=== PATIENT | female | born 1960 | race Caucasian/White ===

== ENCOUNTER 2016-08-21 08:46 | Outpatient (CLI) | payer MEDICAID | END 2016-08-21 08:47 | disposition home or self-care (01) | DX: E11.9 Type 2 diabetes mellitus without complications (principal); I10 Essential (primary) hypertension ==

== ENCOUNTER 2016-11-25 06:57 | Outpatient (CLI) | payer MEDICAID ==
[2016-11-25 19:12] LABS: CALCIUM 9.8 mg/dL (8.5-10.3); CREATININE 0.9 mg/dL (0.4-1.0); HEMOGLOBIN A1C 1.22 g/dL; POTASSIUM 4.3 mmol/L (3.5-5.0)
== END 2016-11-25 06:58 | disposition home or self-care (01) ==
LOC: LAB.N 06:57
PROVIDERS: ATTEND Family Medicine
DX: E11.9 Type 2 diabetes mellitus without complications (principal); I10 Essential (primary) hypertension
CPT/HCPCS: 36415; 80048; 83036

== ENCOUNTER 2016-12-08 09:00 | Outpatient (CLI) | payer MEDICAID | END 2016-12-08 09:15 | disposition home or self-care (01) | LOC: RT.N 09:00 | PROVIDERS: ATTEND Family Medicine | DX: R01.1 Cardiac murmur, unspecified (principal); R00.2 Palpitations | CPT/HCPCS: 93005 ==

== ENCOUNTER 2016-12-17 11:19 | Outpatient (CLI) | payer MEDICAID ==
--- NOTE | 2016-12-18 11:59 | XRAY Report ---
LEFT SHOULDER, THREE VIEWS: 12/17/2016 CLINICAL HISTORY: Left shoulder pain. FINDINGS: Soft tissue is normal. Moderate-sized left subacromial spurring is seen. Spurring is not ed at the AC joint, both along the acromial and clavicular surfaces. Spurring is also seen along the lateral superior aspect of the acromion. Mild spurring is noted along the lateral aspect of the gre ater tuberosity of the left humeral head. Minor subchondral cyst formation is noted. Left glenohume ral joint appears normal. IMPRESSION: 1. MILD OSTEOARTHRITIS OF THE LEFT AC JOINT IS SEEN WITHOUT SIGNIFICANT NARROWING. 2. MODERATE-SIZED LEFT SUBACROMIAL SPUR IS NOTED. 3. MILD SPURRING IS SEEN ALONG THE LATERAL ASPECT OF THE LEFT HUMERAL HEAD. JOB #: [id number] EXT JOB #:[id number]
== END 2016-12-17 11:20 | disposition home or self-care (01) ==
LOC: DI.N 11:19
PROVIDERS: ATTEND Family Medicine
DX: M19.012 Primary osteoarthritis, left shoulder (principal); M25.712 Osteophyte, left shoulder

== ENCOUNTER 2017-03-09 20:18 | Outpatient (CLI) | payer MEDICAID ==
[2017-03-09 13:21] LABS: CALCIUM 9.4 mg/dL (8.5-10.3); CREATININE 0.9 mg/dL (0.4-1.0); POTASSIUM 3.7 mmol/L (3.5-5.0)
[2017-03-09 13:34] LABS: HEMOGLOBIN A1C 0.8 g/dL
== END 2017-03-09 20:19 | disposition home or self-care (01) ==
LOC: LAB.N 20:18
PROVIDERS: ATTEND Family Medicine
DX: E11.9 Type 2 diabetes mellitus without complications (principal)
CPT/HCPCS: 36415; 80048; 83036

== ENCOUNTER 2017-10-20 08:00 | Outpatient (CLI) | payer MEDICAID ==
[2017-10-20 12:54] LABS: BASOPHILS % (AUTO) 0.6 %; EOSINOPHILS # (AUTO) 0.2 10^3/uL (0.0-0.7); EOSINOPHILS % (AUTO) 2.3 %; HGB - HEMOGLOBIN 13.6 g/dL (12.0-16.0); LYMPHOCYTES # (AUTO) 2.8 10^3/uL (1.5-3.5); LYMPHOCYTES % (AUTO) 35.7 %; MEAN CORPUSCULAR HEMOGLOBIN 32.9 pg (27.0-31.0); MEAN CORPUSCULAR HGB CONC 34.7 g/dL (32.0-36.0); MEAN CORPUSCULAR VOLUME 94.8 fL (81.0-99.0); MEAN PLATELET VOLUME 8.1 fL (7.9-10.8); MONOCYTES # (AUTO) 0.7 10^3/uL (0.0-1.0); MONOCYTES % (AUTO) 9.3 %; NEUTROPHILS # (AUTO) 4.1 10^3/uL (1.5-6.6); NEUTROPHILS % (AUTO) 52.1 %; PLT - PLATELET COUNT 333 10^3/uL (130-450); RED BLOOD COUNT 4.14 10^6/uL (4.20-5.40); RED CELL DISTRIBUTION WIDTH 13.1 % (12.0-15.0); WHITE BLOOD COUNT 7.8 x10^3/uL (4.8-10.8)
[2017-10-20 13:11] LABS: HB2 TOTAL 15.3 g/dL; HEMOGLOBIN A1C 0.94 g/dL; HEMOGLOBIN A1C % 7.8 % (4.6-6.2)
[2017-10-20 13:20] LABS: THYROID STIMULATING HORMONE 6.02 uIU/mL (0.34-5.60)
[2017-10-20 13:24] LABS: ALBUMIN 4.3 g/dL (3.2-5.5); ALBUMIN/GLOBULIN RATIO 1.3 (1.0-2.2); ALKALINE PHOSPHATASE 41 IU/L (42-121); ALT ALANINE AMINOTRANSFERASE 30 IU/L (10-60); AST ASPARTATE AMINOTRANSFERASE 31 IU/L (10-42); BILIRUBIN,TOTAL 0.6 mg/dL (0.2-1.0); BUN - BLOOD UREA NITROGEN 18 mg/dL (6-20); CALCIUM 9.3 mg/dL (8.5-10.3); CARBON DIOXIDE - CO2 25 mmol/L (21-32); CHLORIDE 101 mmol/L (101-111); CHOLESTEROL 182 mg/dL; CREATININE 0.9 mg/dL (0.4-1.0); GFR - MDRD 64 (>89); GLUCOSE 201 mg/dL (70-100); HDL CHOLESTEROL 45 mg/dL; LDL CHOLESTEROL,CALCULATED 97 mg/dL; LDL/HDL RATIO 2.2 (<4.4); SODIUM 135 mmol/L (135-145); TOTAL PROTEIN 7.7 g/dL (6.7-8.2); VLDL CHOLESTEROL 40 mg/dL
[2017-10-20 14:22] LABS: FREE T4 (FREE THYROXINE) 0.73 ng/dL (0.58-1.64)
== END 2017-10-20 08:01 | disposition home or self-care (01) ==
LOC: LAB.N 08:00
PROVIDERS: ATTEND Family Medicine
DX: E66.9 Obesity, unspecified (principal); E11.9 Type 2 diabetes mellitus without complications; I10 Essential (primary) hypertension
CPT/HCPCS: 36415; 80050; 80061; 83036; 83721; 84439

== ENCOUNTER 2018-01-30 15:07 | Emergency (ER) | payer MEDICAID ==
[2018-01-30 15:17] VITALS: BP 140/88
[2018-01-30] MEDS ORDERED: KETOROLAC 60 MG/2 ML VIAL IM STA (15:23)
--- NOTE | 2018-01-30 15:26 | ED Physician Documentation ---
PD HPI BACK PAIN - Stated complaint Stated Complaint: RT LOW BK PX - Chief complaint Chief Complaint: Back Pain - History obtained from History obtained from: Patient - History of Present Illness Timing - onset: Other (This is a 57-year-old woman with diabetes who has a long history of low back pain with exacerbations on the right side causing sciatica. She developed her typical low back pain 4 days ago without specific injury. She has been trying to stretch it out without relief. She is taking Aleve for also without relief. She denies weakness, numbness, or tingling of the extremities or saddle anesthesia. There is no fever, there is no bowel or bladder incontinence, but it does exacerbate her back pain to poop.) Review of Systems Constitutional: denies: Fever, Chills Cardiac: denies: Chest pain / pressure, Palpitations Respiratory: denies: Dyspnea, Cough PD PAST MEDICAL HISTORY - Past Medical History Past Medical History: Yes Cardiovascular: Hypertension, High cholesterol Respiratory: None Endocrine/Autoimmune: Type 2 diabetes GI: GERD HEENT: None Musculoskeletal: Chronic back pain Derm: None - Past Surgical History Past Surgical History: Yes Ortho: Knee replacement, Carpal Tunnel surgery - Present Medications Home Medications: Ambulatory Orders Medication Instructions Recorded Confirmed Amlodipine Besylate 10 mg PO QDAC 12/01/12 03/19/16 Insulin Aspart (Vial) [NovoLOG] 20 unit SUBQ TIDACHS 12/01/12 03/19/16 Lisinopril 20 mg PO .FREQ 12/01/12 03/19/16 Metformin HCl 1,000 mg PO .FREQ 12/01/12 03/19/16 hydroCHLOROthiazide [Hydrodiuril] 25 mg PO ONCE 12/01/12 03/19/16 Cyclobenzaprine [Flexeril] 10 mg PO TID PRN #20 tablet 01/30/18 Oxycodone HCl/Acetaminophen 1 - 2 tab PO Q4H PRN #15 tablet 01/30/18 [Percocet 5-325 mg Tablet] raNITIdine [Zantac] BID 01/30/18 - Allergies Allergies/Adverse Reactions: Allergies Allergy/AdvReac Type Severity Reaction Status Date / Time fenoprofen calcium * Allergy Unknown unknown Verified 01/30/18 15:17 [From Nalfon] hydrocodone bitartrate * Allergy unknown Verified 01/30/18 15:17 [From Vicodin] NSAIDS (Non-Steroidal Allergy Unknown Verified 01/30/18 15:17 Anti-Inflamma - Social History Does the pt smoke?: No Smoking Status: Never smoker Does the pt drink ETOH?: No Does the pt have substance abuse?: No - Immunizations Immunizations are current?: Yes - POLST Patient has POLST: No PD ED PE NORMAL - Vitals Vital signs reviewed: Yes - General General: Alert and oriented X 3, No acute distress - Cardiac Cardiac: RRR, No murmur - Respiratory Respiratory: No respiratory distress, Clear bilaterally - Abdomen Abdomen: Non tender - Back Back: No spinal TTP, Other (Tender in the right sciatic notch) - Extremities Extremities: Other (Slightly diminished sensation in the right L4 distribution, reflexes are diminished but symmetric throughout. Normal gait.) - Neuro Neuro: Alert and oriented X 3, Normal speech Results - Vitals Vitals: Vital Signs - 24 hr 01/30/18 15:15 Temperature 36.0 C L Heart Rate 112 H Respiratory 25 H Rate Blood Pressure 140/88 H O2 Saturation 98 Oxygen O2 Source Room air PD MEDICAL DECISION MAKING - ED course ED course: This patient has seemingly uncomplicated musculoskeletal back pain. The patient has no "red flags." Specifically denies IV drug use, fevers, incontinence, saddle anesthesia. Spinal epidural abscess was considered, given that the patient has no fever, has no spinal tenderness, does not use IV drugs, and has no bilateral neurologic symptoms, the diagnosis of spinal epidural abscess is considered exceedingly unlikely. - Sepsis Event Vital Signs: Vital Signs - 24 hr 01/30/18 15:15 Temperature 36.0 C L Heart Rate 112 H Respiratory 25 H Rate Blood Pressure 140/88 H O2 Saturation 98 Oxygen O2 Source Room air Departure - Departure Disposition: 01 Home, Self Care Clinical Impression: Back pain Qualifiers: Back pain location: low back pain Chronicity: chronic Back pain laterality: right Sciatica presence: with sciatica Sciatica laterality: sciatica of right side Qualified Code(s): M54.41 - Lumbago with sciatica, right side; G89.29 - Other chronic pain; G89.29 - Other chronic pain Condition: Good Record reviewed to determine appropriate education?: Yes Instructions: ED Low Back Pain Injury Prescriptions: Cyclobenzaprine [Flexeril] 10 mg PO TID PRN #20 tablet PRN Reason: Pain Oxycodone HCl/Acetaminophen [Percocet 5-325 mg Tablet] 1 - 2 tab PO Q4H PRN #15 tablet PRN Reason: Pain Comments: Call your doctor to arrange a follow-up appointment, make the next available appointment. In the interim, return anytime if worse or if new symptoms develop.
== END 2018-01-30 15:48 | disposition home or self-care (01) ==
LOC: ED 15:07
DX: G89.29 Other chronic pain (principal); M54.41 Lumbago with sciatica, right side; I10 Essential (primary) hypertension; E11.9 Type 2 diabetes mellitus without complications; Z79.4 Long term (current) use of insulin
CPT/HCPCS: 96372; 99283

== ENCOUNTER 2018-02-10 09:36 | Outpatient (CLI) | payer MEDICAID ==
--- NOTE | 2018-02-10 14:07 | XRAY Report ---
Procedure Date: 02/10/2018 Accession Number: [id number] / [id number] Procedure: XRN - Lumbar Spine 2 View CPT Code: FULL RESULT: EXAM: LUMBOSACRAL SPINE RADIOGRAPHY EXAM DATE: 02/10/2018 09:59 AM. CLINICAL HISTORY: BACK PAIN, LUMBAR. COMPARISONS: None. TECHNIQUE: 3 views. FINDINGS: Alignment: There is mild left convex curvature of the thoracolumbar spine centered at the L1 level. This measures approximately 14 degrees from the superior endplate of T11 to the inferior endplate of L3. There is grade 1 anterolisthesis of L4 on L5 measuring approximately 4 mm. Bones: Five [id number] lumbar vertebral bodies are present. No fractures or bone lesions. Disks: There is mild disk height loss and endplate osteophyte formation throughout the lumbar spine. Facets: There are probable mild degenerative facet changes of the lower lumbar spine. Sacroiliac Joints: Unremarkable. Soft Tissues: Normal. The visualized bowel gas pattern is normal. IMPRESSION: 1. No acute osseous abnormality. 2. Mild multilevel degenerative disk and degenerative facet changes of the lumbar spine. 3. Grade 1 anterolisthesis of L4 on L5 and mild left convex curvature at the thoracolumbar junction, likely related to degenerative changes. RADIA
== END 2018-02-10 09:37 | disposition home or self-care (01) ==
LOC: DI.N 09:36
PROVIDERS: ATTEND Family Medicine
DX: M51.36 Other intervertebral disc degeneration, lumbar region (principal); M47.896 Other spondylosis, lumbar region; E11.65 Type 2 diabetes mellitus with hyperglycemia
CPT/HCPCS: 36415; 72100; 80048; 83036

== ENCOUNTER 2018-02-10 10:39 | Outpatient (CLI) | payer MEDICAID ==
[2018-02-10 19:01] LABS: CALCIUM 9.8 mg/dL (8.5-10.3); CREATININE 1.1 mg/dL (0.4-1.0)
[2018-02-10 19:10] LABS: HB2 TOTAL 14.2 g/dL; HEMOGLOBIN A1C 0.89 g/dL; HEMOGLOBIN A1C % 7.9 % (4.6-6.2)
== END 2018-02-10 10:40 | disposition home or self-care (01) ==
LOC: LAB.N 10:39
PROVIDERS: ATTEND Family Medicine
DX: E11.65 Type 2 diabetes mellitus with hyperglycemia (principal)
CPT/HCPCS: 36415; 80048; 83036

== ENCOUNTER 2018-03-25 11:51 | Outpatient (CLI) | payer MEDICAID ==
--- NOTE | 2018-03-25 17:34 | XRAY Report ---
Reason: KNEE PAIN Procedure Date: 03/25/2018 Accession Number: [id number] / [id number] Procedure: XRN - Knee 3 View LT CPT Code: FULL RESULT: EXAM: LEFT KNEE RADIOGRAPHY EXAM DATE: 03/25/2018 12:06 PM. CLINICAL HISTORY: KNEE PAIN. COMPARISON: None. TECHNIQUE: 3 views. FINDINGS: Bones: Normal. No fractures or bone lesions. Joints: Medial hemiarthroplasty in anatomic alignment. No abnormal lucency associated with the arthroplasty. Mild marginal lipping involving the other 2 compartments. Small joint effusion. Smooth ossicle lateral to the lateral tibial plateau. Soft Tissues: Unremarkable. IMPRESSION: 1. Postoperative changes in the medial compartment. 2. Moderate degenerative changes in other compartments. RADIA
== END 2018-03-25 11:52 | disposition home or self-care (01) ==
LOC: DI.N 11:51
PROVIDERS: ATTEND Family Medicine
DX: M17.12 Unilateral primary osteoarthritis, left knee (principal)

== ENCOUNTER 2018-05-06 10:17 | Outpatient (CLI) | payer MEDICAID | END 2018-05-06 10:18 | disposition home or self-care (01) | LOC: RT.N 10:17 | PROVIDERS: ATTEND Family Medicine | DX: R61 Generalized hyperhidrosis (principal) | CPT/HCPCS: 93005 ==

== ENCOUNTER 2018-07-04 16:19 | Emergency (ER) | payer MEDICAID ==
--- NOTE | 2018-07-04 17:10 | ED Physician Documentation ---
PD HPI BACK INJURY - Stated complaint Stated Complaint: FLOOR VS TAILBONE - History obtained from History obtained from: Patient - History of Present Illness Location: Lower (She slipped about 10 days ago and hit her tailbone. It hurt severely for 2 days and then started getting better but the pain recurred today while sneezing.) Review of Systems Constitutional: denies: Fever, Chills GI: denies: Abdominal Pain, Nausea, Vomiting PD PAST MEDICAL HISTORY - Past Medical History Cardiovascular: Hypertension, High cholesterol Respiratory: None Endocrine/Autoimmune: Type 2 diabetes GI: GERD HEENT: None Musculoskeletal: Chronic back pain Derm: None - Past Surgical History Past Surgical History: Yes Ortho: Knee replacement, Carpal Tunnel surgery - Present Medications Home Medications: Ambulatory Orders Medication Instructions Recorded Confirmed Insulin Aspart (Vial) [NovoLOG] 20 unit SUBQ TIDACHS 12/01/12 03/19/16 RX: Amlodipine Besylate 10 mg PO QDAC 12/01/12 03/19/16 RX: Lisinopril 20 mg PO .FREQ 12/01/12 03/19/16 RX: Metformin HCl 1,000 mg PO .FREQ 12/01/12 03/19/16 hydroCHLOROthiazide [Hydrodiuril] 25 mg PO ONCE 12/01/12 03/19/16 Cyclobenzaprine [Flexeril] 10 mg PO TID PRN #20 tablet 01/30/18 Oxycodone HCl/Acetaminophen 1 - 2 tab PO Q4H PRN #15 tablet 01/30/18 [Percocet 5-325 mg Tablet] RX: raNITIdine [Zantac] BID 01/30/18 Oxycodone HCl/Acetaminophen 1 - 2 each PO Q6H PRN #14 tablet 07/04/18 [Percocet 5-325 mg Tablet] - Allergies Allergies/Adverse Reactions: Allergies Allergy/AdvReac Type Severity Reaction Status Date / Time fenoprofen calcium * Allergy Unknown unknown Verified 07/04/18 16:33 [From Nalfon] hydrocodone bitartrate * Allergy unknown Verified 07/04/18 16:33 [From Vicodin] NSAIDS (Non-Steroidal Allergy Unknown Verified 07/04/18 16:33 Anti-Inflamma - Social History Does the pt smoke?: No Smoking Status: Never smoker Does the pt drink ETOH?: No Does the pt have substance abuse?: No - Immunizations Immunizations are current?: Yes - POLST Patient has POLST: No PD ED PE NORMAL - Vitals Vital signs reviewed: Yes - General General: Alert and oriented X 3, No acute distress - Cardiac Cardiac: RRR, No murmur - Respiratory Respiratory: No respiratory distress, Clear bilaterally - Abdomen Abdomen: Non tender - Back Back: Other (Tender in the low L-spine and over the sacrum) - Extremities Extremities: Other (The patient has equal and normal Achilles and patellar reflexes bilaterally. Normal sensation in all areas of the legs. Patient denies saddle anesthesia. Normal strength in flexion-extension at the ankles, knees, and flexion of the hips.) - Neuro Neuro: Alert and oriented X 3, Normal speech Results - Vitals Vitals: Vital Signs - 24 hr 07/04/18 07/04/18 16:29 18:27 Temperature 36.5 C 36.7 C Heart Rate 124 H 115 H Respiratory 20 16 Rate Blood Pressure 159/109 H 153/83 H O2 Saturation 97 97 Oxygen O2 Source Room air - Rads (name of study) Lumbar and sacral x-rays Radiology: EMP read contemporaneously (NAD, DDD) Departure - Departure Disposition: Home, Self Care Clinical Impression: Sacral contusion, Back pain Record reviewed to determine appropriate education?: Yes Instructions: ED Low Back Pain Injury Prescriptions: Oxycodone HCl/Acetaminophen [Percocet 5-325 mg Tablet] 1 - 2 each PO Q6H PRN #14 tablet PRN Reason: pain Comments: Call your doctor to arrange a follow-up appointment, make the next available appointment. In the interim, return anytime if worse or if new symptoms develop. Your blood pressure was elevated today on check into the emergency department. This does not mean that you have hypertension, it is a common phenomenon to come to the emergency department and have elevated blood pressure. I recommend that you see your primary care physician within the week to have it rechecked when you are feeling better. Do not drink or drive while taking narcotic pain medication. Note that many narcotic pain relievers also contain Tylenol/acetaminophen. Please ensure that your total dose of acetaminophen from all sources does not exceed 3 g (3000 mg) per day. You may get constipated while on this medication. Take a stool softener such as Colace twice a day while you are on it. Also add an xuqn-[id number] laxative such as senna or MiraLAX on any day that you do not have a bowel movement. If you received a narcotic pain medication or sedative while in the emergency department, do not drive for the next 24 hours. Discharge Date/Time: 07/04/18 18:33
--- NOTE | 2018-07-04 18:10 | XRAY Report ---
Reason: back inj Procedure Date: 07/04/2018 Accession Number: [id number] / [id number] Procedure: XR - Sacrum/Coccyx CPT Code: FULL RESULT: EXAM: SACRUM AND COCCYX RADIOGRAPHY EXAM DATE: 07/04/2018 05:46 PM. HISTORY: Coccygeal pain. Unable to sit or stand upright. Injury on 06/24/2018. COMPARISONS: Lumbar spine series 02/10/2018. TECHNIQUE: 3 views. FINDINGS: Alignment: Stable sacrococcygeal alignment compared to the prior exam. No dislocation. Bones: No acute fracture or bone destructive process identified. Intact sacral ala. Joints: Symmetrical SI joints. Stable appearance of bilateral hip joints and symphysis pubis. Other: Degenerative changes of the visualized lower lumbar spine and stable grade 1 anterolisthesis L4 on L5. IMPRESSION: 1. No acute sacrococcygeal fracture or dislocation identified. RADIA
--- NOTE | 2018-07-04 18:18 | XRAY Report ---
Reason: back inj Procedure Date: 07/04/2018 Accession Number: [id number] / [id number] Procedure: XR - Lumbar Spine 2 View CPT Code: FULL RESULT: EXAM: LUMBOSACRAL SPINE RADIOGRAPHY EXAM DATE: 07/04/2018 05:46 PM. CLINICAL HISTORY: Back pain COMPARISONS: LUMBAR SPINE 2 VIEW 02/10/2018 9:54 AM. TECHNIQUE: 2 views. FINDINGS: Alignment: There is grade 1 anterolisthesis of L4 on L5. This is stable. Bones: No fractures or focal bony lesions. Disks/Facets: There is multilevel disk space narrowing. There is lower lumbar facet arthrosis. Sacroiliac Joints: Unremarkable. Soft Tissues: No unexpected findings. IMPRESSION: 1. No evidence of fracture or dislocation. 2. There is moderate multilevel degenerative disease. RADIA
[2018-07-04 18:28] VITALS: BP 153/83
== END 2018-07-04 18:33 | disposition home or self-care (01) ==
LOC: ED 16:19
DX: S30.0XXA Contusion of lower back and pelvis, initial encounter (principal); W01.0XXA Fall on same level from slipping, tripping and stumbling without subsequent striking against object, initial encounter; M54.5 Low back pain; I10 Essential (primary) hypertension; E78.00 Pure hypercholesterolemia, unspecified; E11.9 Type 2 diabetes mellitus without complications; Z79.4 Long term (current) use of insulin; Z96.659 Presence of unspecified artificial knee joint
CPT/HCPCS: 72100; 72220; 99283

== ENCOUNTER 2018-11-16 09:39 | Outpatient (CLI) | payer MEDICAID ==
[2018-11-16 14:05] LABS: CREATININE 0.9 mg/dL (0.4-1.0)
[2018-11-16 14:36] LABS: HB2 TOTAL 15.7 g/dL; HEMOGLOBIN A1C 1.89 g/dL; HEMOGLOBIN A1C % 13.2 % (4.6-6.2)
== END 2018-11-16 23:59 | disposition home or self-care (01) ==
LOC: LAB.N 09:39
PROVIDERS: ATTEND Physician Assistant Medical
DX: E11.9 Type 2 diabetes mellitus without complications (principal)
CPT/HCPCS: 36415; 80048; 83036

== ENCOUNTER 2019-01-06 08:00 | Outpatient (CLI) | payer MEDICAID | END 2019-01-06 08:01 | disposition home or self-care (01) | LOC: LAB.R 08:00 | PROVIDERS: ATTEND Family Medicine | DX: R39.9 Unspecified symptoms and signs involving the genitourinary system (principal) | CPT/HCPCS: 87077; 87086; 87181 ==

== ENCOUNTER 2019-03-16 10:13 | Outpatient (CLI) | payer MEDICAID ==
[2019-03-16 13:03] LABS: HEMOGLOBIN A1C 1.25 g/dL; HEMOGLOBIN A1C % 10.3 % (4.6-6.2)
== END 2019-03-16 10:20 | disposition home or self-care (01) ==
LOC: LAB.N 10:13
PROVIDERS: ATTEND Physician Assistant Medical
DX: E11.8 Type 2 diabetes mellitus with unspecified complications (principal); Z79.4 Long term (current) use of insulin
CPT/HCPCS: 36415; 83036

== ENCOUNTER 2019-08-28 14:50 | Outpatient (CLI) | payer MEDICAID ==
[2019-08-28 18:50] LABS: CALCIUM 10.5 mg/dL (8.5-10.3); CREATININE 0.9 mg/dL (0.4-1.0); MAGNESIUM 1.9 mg/dL (1.7-2.8)
== END 2019-08-28 23:59 | disposition home or self-care (01) ==
LOC: LAB.N 14:50
PROVIDERS: ATTEND Internal Medicine Cardiovascular Disease
DX: I10 Essential (primary) hypertension (principal)
CPT/HCPCS: 36415; 80048; 82088; 83735; 83835; 84443

== ENCOUNTER 2019-08-30 10:43 | Outpatient (CLI) | payer MEDICAID ==
[2019-08-30 12:21] LABS: HB2 TOTAL 14.3 g/dL; HEMOGLOBIN A1C 0.57 g/dL; HEMOGLOBIN A1C % 5.8 % (4.6-6.2)
[2019-08-30 12:32] LABS: THYROID STIMULATING HORMONE 4.32 uIU/mL (0.34-5.60)
[2019-08-30 12:34] LABS: FREE T4 (FREE THYROXINE) 0.98 ng/dL (0.58-1.64)
== END 2019-08-30 23:59 | disposition home or self-care (01) ==
LOC: LAB.N 10:43
PROVIDERS: ATTEND Physician Assistant Medical
DX: E83.52 Hypercalcemia (principal); E11.9 Type 2 diabetes mellitus without complications; R79.89 Other specified abnormal findings of blood chemistry
CPT/HCPCS: 36415; 83036; 84439; 84443; 86800

== ENCOUNTER 2019-09-08 10:44 | Outpatient (CLI) | payer MEDICAID | END 2019-09-08 23:59 | disposition home or self-care (01) | LOC: LAB.N 10:44 | PROVIDERS: ATTEND Physician Assistant Medical | DX: E83.52 Hypercalcemia (principal) | CPT/HCPCS: 36415; 82306; 83970 ==

== ENCOUNTER 2019-09-08 11:01 | Outpatient (CLI) | payer MEDICAID ==
--- NOTE | 2019-09-08 22:32 | XRAY Report ---
Reason: THORACIC PAIN Procedure Date: 09/08/2019 Accession Number: [id number] / [id number] Procedure: XRN - Thoracic Spine 2 View CPT Code: Final Report FULL RESULT: EXAM: THORACIC SPINE RADIOGRAPHY EXAM DATE: 09/08/2019 11:22 AM. CLINICAL HISTORY: THORACIC PAIN. COMPARISON: LUMBAR SPINE 2 VIEW 02/10/2018 9:54 AM. TECHNIQUE: 3 views. FINDINGS: Alignment: There is mild left convexity curvature of the lower thoracic and visualized upper lumbar spine just a mild scoliosis similar to the prior lumbar spine x-ray in 2018. No subluxation. Bones: No fractures or bone lesions. Disks: There is mild to moderate loss of disk height and anterior endplate spurring at multiple mid and lower thoracic levels from T6-T7 through T12-L1 compatible with spondylosis and degenerative disk disease. Soft Tissues: Normal. The visualized lungs and cardiomediastinal silhouette are unremarkable. IMPRESSION: 1. No acute osseous abnormality of thoracic spine. 2. Mild to moderate multilevel spondylosis and degenerative disk disease involving mid and lower thoracic levels. 3. Mild left convexity curvature of lower thoracic and visualized upper lumbar spine suggesting mild scoliosis. RADIA
== END 2019-09-08 11:02 | disposition home or self-care (01) ==
LOC: DI.N 11:01
PROVIDERS: ATTEND Physician Assistant Medical
DX: M51.34 Other intervertebral disc degeneration, thoracic region (principal); M47.814 Spondylosis without myelopathy or radiculopathy, thoracic region
CPT/HCPCS: 72070

== ENCOUNTER 2019-09-26 13:55 | Outpatient (CLI) | payer MEDICAID ==
[2019-09-26 17:20] LABS: HB2 TOTAL 14.9 g/dL; HEMOGLOBIN A1C 0.57 g/dL; HEMOGLOBIN A1C % 5.7 % (4.6-6.2)
== END 2019-09-26 23:59 | disposition home or self-care (01) ==
LOC: LAB.N 13:55
PROVIDERS: ATTEND Physician Assistant Medical
DX: E11.9 Type 2 diabetes mellitus without complications (principal)
CPT/HCPCS: 36415; 83036

== ENCOUNTER 2020-10-22 08:00 | Outpatient (CLI) | payer MEDICAID ==
[2020-10-22 18:01] LABS: BASOPHILS % (AUTO) 0.6 %; EOSINOPHILS # (AUTO) 0.1 10^3/uL (0.0-0.7); HCT - HEMATOCRIT 42.6 % (37.0-47.0); HGB - HEMOGLOBIN 13.9 g/dL (12.0-16.0); LYMPHOCYTES # (AUTO) 2.6 10^3/uL (1.5-3.5); LYMPHOCYTES % (AUTO) 40.2 %; MEAN CORPUSCULAR HEMOGLOBIN 32.2 pg (27.0-31.0); MEAN CORPUSCULAR HGB CONC 32.6 g/dL (32.0-36.0); MEAN CORPUSCULAR VOLUME 98.6 fL (81.0-99.0); MEAN PLATELET VOLUME 10.1 fL (7.9-10.8); MONOCYTES # (AUTO) 0.7 10^3/uL (0.0-1.0); MONOCYTES % (AUTO) 10.3 %; NEUTROPHILS % (AUTO) 46.7 %; PLT - PLATELET COUNT 371 10^3/uL (130-450); RED BLOOD COUNT 4.32 10^6/uL (4.20-5.40); RED CELL DISTRIBUTION WIDTH 12.7 % (12.0-15.0); WHITE BLOOD COUNT 6.5 x10^3/uL (4.8-10.8)
[2020-10-22 18:19] LABS: ALBUMIN 4.2 g/dL (3.2-5.5); ALBUMIN/GLOBULIN RATIO 1.3 (1.0-2.2); ALKALINE PHOSPHATASE 55 IU/L (42-121); ALT ALANINE AMINOTRANSFERASE 20 IU/L (10-60); AST ASPARTATE AMINOTRANSFERASE 20 IU/L (10-42); BILIRUBIN,TOTAL 0.5 mg/dL (0.2-1.0); BUN - BLOOD UREA NITROGEN 13 mg/dL (6-20); CALCIUM 9.5 mg/dL (8.5-10.3); CARBON DIOXIDE - CO2 26 mmol/L (21-32); CHLORIDE 100 mmol/L (101-111); CHOL/HDL RATIO 4.2 (<4.4); CHOLESTEROL 250 mg/dL; CREATININE 0.7 mg/dL (0.4-1.0); GFR - MDRD 85 (>89); GLUCOSE 185 mg/dL (70-100); HDL CHOLESTEROL 59 mg/dL; LDL CHOLESTEROL,CALCULATED 136 mg/dL; LDL/HDL RATIO 2.3 (<4.4); POTASSIUM 4.1 mmol/L (3.5-5.0); SODIUM 137 mmol/L (135-145); TOTAL PROTEIN 7.5 g/dL (6.7-8.2); TRIGLYCERIDES 277 mg/dL; VLDL CHOLESTEROL 55 mg/dL
[2020-10-22 18:27] LABS: THYROID STIMULATING HORMONE 3.96 uIU/mL (0.34-5.60)
[2020-10-22 20:20] LABS: ESTIMATED AVERAGE GLUCOSE 126 mg/dL (70-100)
== END 2020-10-22 23:59 | disposition home or self-care (01) ==
LOC: LAB.WCP 08:00
PROVIDERS: ATTEND Nurse Practitioner Family
DX: E11.8 Type 2 diabetes mellitus with unspecified complications (principal); R94.6 Abnormal results of thyroid function studies; I10 Essential (primary) hypertension; Z79.4 Long term (current) use of insulin
CPT/HCPCS: 36415; 80050; 80061; 83036; 83721

== ENCOUNTER 2021-10-03 09:57 | Emergency (ER) | payer MEDICAID ==
[2021-10-03 10:07] VITALS: BP 155/95
[2021-10-03] MEDS ORDERED: DEXAMETHASONE 10 MG/ML VIAL IM STA (10:54)
--- NOTE | 2021-10-03 11:07 | ED Physician Documentation ---
History of Present Illness - Stated complaint Stated Complaint: R HIP/LEG PAIN - Chief complaint Chief Complaint: Ext Problem - History obtained from History obtained from: Patient - Additonal information Additional information: The patient comes to the emergency department chief complaint of exacerbation of left hip pain for the last 2 weeks. Patient states she has a longstanding history of low back and bilateral sciatic pain, worse on the left, after a work- related injury nearly 20 years ago. She states that she has had many MRIs and has been offered the option of surgical intervention, that with this did not seem ideal, so she has not moved forward with this. She states that she began to notice increased pain in her left lateral hip as well as her mid inguinal ligament area about 2 weeks ago. 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 She states that she woke up couple nights ago and found herself lying Curled on her left side and that her lateral hip was especially painful after this. She states it hurts to bear weight. Patient walks with a cane. She has not seen an orthopedist or had an MRI In some years. No other complaints at this time. Review of Systems Ten Systems: 10 systems reviewed and negative Constitutional: reports: Reviewed and negative Eyes: reports: Reviewed and negative Ears: reports: Reviewed and negative Nose: reports: Reviewed and negative Throat: reports: Reviewed and negative Cardiac: reports: Reviewed and negative Respiratory: reports: Reviewed and negative GI: reports: Reviewed and negative : reports: Reviewed and negative Skin: reports: Reviewed and negative Musculoskeletal: reports: Joint pain, Pain with weight bearing Neurologic: reports: Reviewed and negative Psychiatric: reports: Reviewed and negative Endocrine: reports: Reviewed and negative Immunocompromised: reports: Reviewed and negative PD PAST MEDICAL HISTORY - Past Medical History Cardiovascular: Hypertension, High cholesterol Respiratory: None Endocrine/Autoimmune: Type 2 diabetes GI: GERD HEENT: None Musculoskeletal: Chronic back pain Derm: None - Past Surgical History Past Surgical History: Yes Ortho: Knee replacement, Carpal Tunnel surgery - Present Medications Home Medications: Ambulatory Orders Medication Instructions Recorded Confirmed Amlodipine Besylate 10 mg PO QDAC 12/01/12 03/19/16 Insulin Aspart (Vial) [NovoLOG] 20 unit SUBQ TIDACHS 12/01/12 03/19/16 Lisinopril 20 mg PO .FREQ 12/01/12 03/19/16 Metformin HCl 1,000 mg PO .FREQ 12/01/12 03/19/16 hydroCHLOROthiazide [Hydrodiuril] 25 mg PO ONCE 12/01/12 03/19/16 Cyclobenzaprine [Flexeril] 10 mg PO TID PRN #20 tablet 01/30/18 Oxycodone HCl/Acetaminophen 1 - 2 tab PO Q4H PRN #15 tablet 01/30/18 [Percocet 5-325 mg Tablet] raNITIdine [Zantac] BID 01/30/18 Oxycodone HCl/Acetaminophen 1 - 2 each PO Q6H PRN #14 tablet 07/04/18 [Percocet 5-325 mg Tablet] Oxycodone HCl/Acetaminophen 1 - 2 each PO Q6H PRN #14 tablet 10/03/21 [Percocet 5-325 mg Tablet] predniSONE [Deltasone] 60 mg PO DAILY 5 Days #15 tablet 10/03/21 - Allergies Allergies/Adverse Reactions: Allergies Allergy/AdvReac Type Severity Reaction Status Date / Time fenoprofen calcium * Allergy Unknown unknown Verified 10/03/21 10:02 [From Nalfon] hydrocodone bitartrate * Allergy unknown Verified 10/03/21 10:02 [From Vicodin] NSAIDS (Non-Steroidal Allergy Unknown Verified 10/03/21 10:02 Anti-Inflamma - Social History Does the pt smoke?: No Smoking Status: Never smoker Does the pt drink ETOH?: No Does the pt have substance abuse?: No - Immunizations Immunizations are current?: Yes - POLST Patient has POLST: No PD ED PE NORMAL - Vitals Vital signs reviewed: Yes - General General: Alert and oriented X 3, No acute distress, Well developed/nourished, Other (Morbidly obese) - HEENT HEENT: Atraumatic, PERRL, EOMI, Moist mucous membranes - Neck Neck: Supple, no meningeal sign - Cardiac Cardiac: Strong equal pulses - Respiratory Respiratory: No respiratory distress - Derm Derm: Normal color, Warm and dry, No rash - Extremities Extremities: No deformity, No edema, Other (Tenderness palpation over left lateral hip over the trochanteric bursal area. 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 Patient has not had any acute injury and seems to be having a flareup of her chronic inflammation. She is tender over her trochanteric bursa and most likely has a bursitis, in addition to some of her more chronic issues. I do not think emergent imaging will be helpful today, but we have discussed that if she is not doing better in the next couple weeks she should talk to her primary doctor about getting an MRI done. The patient was treated symptomatically in the emergency department Decadron. I have given her a small prescription for Percocet on prednisone at home. We have discussed the usual indications for return. Departure - Departure Disposition: 01 Home, Self Care Clinical Impression: Hip pain, left Bursitis Qualifiers: Bursitis location: hip Hip bursitis location: trochanteric bursitis Laterality: left Qualified Code(s): M70.62 - Trochanteric bursitis, left hip Condition: Stable Instructions: Osteoarthritis Living, ED Bursitis Follow-Up: Cali Sanchez MD [Provider Admit Priv/Credential] - Prescriptions: predniSONE [Deltasone] 60 mg PO DAILY 5 Days #15 tablet Oxycodone HCl/Acetaminophen [Percocet 5-325 mg Tablet] 1 - 2 each PO Q6H PRN #14 tablet PRN Reason: pain Comments: Your prescription has been electronically transmitted to [facility]. Please follow-up with your primary care physician if you are not feeling better in the next couple of weeks to discuss possibly having an MRI done. Discharge Date/Time: 10/03/21 11:41
== END 2021-10-03 11:41 | disposition home or self-care (01) ==
LOC: ED 09:57
DX: M70.62 Trochanteric bursitis, left hip (principal); E11.9 Type 2 diabetes mellitus without complications; I10 Essential (primary) hypertension
CPT/HCPCS: 96372; 99283; 99284

== ENCOUNTER 2021-10-14 10:57 | Emergency (ER) | payer MEDICAID ==
[2021-10-14 11:05] VITALS: BP 188/83
--- NOTE | 2021-10-14 11:07 | ED Physician Documentation ---
PD HPI BACK PAIN - Stated complaint Stated Complaint: HIP/BACK PX - Chief complaint Chief Complaint: Ext Problem - History obtained from History obtained from: Patient - History of Present Illness Timing - onset: How many weeks ago (few) Timing - duration: Weeks (few) Timing - details: Gradual onset, Still present, Waxing and waning Location: Lower, Right, Left Quality: Pain, Spasm, Aching Associated symptoms: Incontinent of urine (for years, stress incontinence of urine; is able to hold urine most of the time.). No: Fever, Weakness, Numbness Worsened by: Movement, Twisting Contributing factors: Twisting. No: Lifting, Trauma Similar symptoms before: Diagnosis (has had disc and arthritis pains in back for many years. WOrse the past few weeks. She saw PMD and she though was scheduled for MRI back today (had been called by nurse and given time/etc) but showed up and was not ordered. To ER for help with pain.) Recently seen: Clinic Review of Systems Constitutional: reports: Myalgias (chronic). denies: Fever, Chills Throat: denies: Sore throat Cardiac: denies: Chest pain / pressure Respiratory: denies: Cough GI: denies: Abdominal Pain : reports: Incontinent. denies: Unable to Void Skin: denies: Rash Musculoskeletal: reports: Back pain. denies: Neck pain Neurologic: denies: Focal weakness, Numbness PD PAST MEDICAL HISTORY - Past Medical History Cardiovascular: Hypertension, High cholesterol Respiratory: None Endocrine/Autoimmune: Type 2 diabetes GI: GERD HEENT: None Musculoskeletal: Chronic back pain Derm: None - Past Surgical History Past Surgical History: Yes Ortho: Knee replacement, Carpal Tunnel surgery - Present Medications Home Medications: Ambulatory Orders Medication Instructions Recorded Confirmed Amlodipine Besylate 10 mg PO QDAC 12/01/12 03/19/16 Insulin Aspart (Vial) [NovoLOG] 20 unit SUBQ TIDACHS 12/01/12 03/19/16 Lisinopril 20 mg PO .FREQ 12/01/12 03/19/16 Metformin HCl 1,000 mg PO .FREQ 12/01/12 03/19/16 hydroCHLOROthiazide [Hydrodiuril] 25 mg PO ONCE 12/01/12 03/19/16 Cyclobenzaprine [Flexeril] 10 mg PO TID PRN #20 tablet 01/30/18 Oxycodone HCl/Acetaminophen 1 - 2 tab PO Q4H PRN #15 tablet 01/30/18 [Percocet 5-325 mg Tablet] raNITIdine [Zantac] BID 01/30/18 Oxycodone HCl/Acetaminophen 1 - 2 each PO Q6H PRN #14 tablet 07/04/18 [Percocet 5-325 mg Tablet] Oxycodone HCl/Acetaminophen 1 - 2 each PO Q6H PRN #14 tablet 10/03/21 [Percocet 5-325 mg Tablet] predniSONE [Deltasone] 60 mg PO DAILY 5 Days #15 tablet 10/03/21 Acetaminophen [Acetaminophen Extra 500 mg PO QID PRN #50 tablet 10/14/21 Strength] dexAMETHasone [Decadron] 4 mg PO DAILY #5 tablet 10/14/21 oxyCODONE [Roxicodone] 5 mg PO Q6H PRN #15 tablet 10/14/21 tiZANidine [Zanaflex] 4 mg PO Q8H PRN #20 tablet 10/14/21 - Allergies Allergies/Adverse Reactions: Allergies Allergy/AdvReac Type Severity Reaction Status Date / Time fenoprofen calcium * Allergy Unknown unknown Verified 10/14/21 11:03 [From Nalfon] hydrocodone bitartrate * Allergy unknown Verified 10/14/21 11:03 [From Vicodin] NSAIDS (Non-Steroidal Allergy Unknown Verified 10/14/21 11:03 Anti-Inflamma - Social History Does the pt smoke?: No Smoking Status: Never smoker Does the pt drink ETOH?: No Does the pt have substance abuse?: No - Immunizations Immunizations are current?: Yes - POLST Patient has POLST: No PD ED PE NORMAL - Vitals Vital signs reviewed: Yes - General General: Alert and oriented X 3, No acute distress, Well developed/nourished - Cardiac Cardiac: RRR, No murmur - Respiratory Respiratory: Clear bilaterally - Abdomen Abdomen: Soft, Non tender, Other (high BMI) - Back Back: Other (tender in lower back muscles left and right. No noted deformity. No rash nor sores. ) - Derm Derm: Normal color, Warm and dry, No rash - Neuro Neuro: Alert and oriented X 3, No motor deficit, No sensory deficit, Other (diminished knee reflexes bilaterally but has prior knee replacements both sides. ) Results - Vitals Vitals: Vital Signs - 24 hr 10/14/21 11:04 Temperature 37.0 C Heart Rate 90 Respiratory 19 Rate Blood Pressure 188/83 H O2 Saturation 100 Oxygen O2 Source Room air PD MEDICAL DECISION MAKING - ED course Complexity details: reviewed old records (she has MRI report from years ago from other facility showing diffuse HNP whole lumbar area. ), considered differential (low back pain without red flags. ), d/w patient Departure - Departure Disposition: 01 Home, Self Care Clinical Impression: Acute exacerbation of chronic low back pain Condition: Stable Record reviewed to determine appropriate education?: Yes Instructions: ED Sciatica Follow-Up: [facility] [Provider Group] Prescriptions: Acetaminophen [Acetaminophen Extra Strength] 500 mg PO QID PRN #50 tablet PRN Reason: Pain dexAMETHasone [Decadron] 4 mg PO DAILY #5 tablet oxyCODONE [Roxicodone] 5 mg PO Q6H PRN #15 tablet PRN Reason: Pain tiZANidine [Zanaflex] 4 mg PO Q8H PRN #20 tablet PRN Reason: Spasms Comments: Continue usual medications. Add Decadron steroid daily for the next 5 days to help with inflammation and pain. You could also add tizanidine muscle relaxant for stiffness and spasms. Use Tylenol 4 times daily with food over the next week. To that add oxycodone every 6-8 hours if needed for worse pain. Contact your primary care office to see if they can reschedule the back imaging/MRI. Is unclear where the order got lost but was not in the system here at the hospital. I transmitted your prescriptions to the [facility] pharmacy here in [facility]. I am prescribing a short course of narcotic pain medication for you. These are potentially dangerous and addictive medications that should be used carefully. These medications may constipate you. Take an cxes-bhe-ulkdceu stool softener such as docusate twice daily with plenty of water while taking these medications. If you go 24 hours without a bowel movement, take uyrd-tox-cifluzo MiraLAX, per package instructions. Do not drink or drive while taking these medications. If you received narcotic or sedating medications while in the emergency department do not drive for 24 hours. Store this medication in a safe, secure place and out of reach of children. It is a violation of federal law to give or sell this medication to another person or to use in a manner other than prescribed. The ED will not refill narcotic prescriptions, including prescriptions lost or stolen. You can dispose of unwanted medications at the [facility] office or at several pharmacies such as [facility]. Discharge Date/Time: 10/14/21 12:06
[2021-10-14] MEDS ORDERED: methocarbamoL 500 MG TABLET PO STA (11:29)
[2021-10-14] MEDS ORDERED: CHERRY SYRUP 10 ML UDC PO ONE (11:29)
[2021-10-14] MEDS ORDERED: ACETAMINOPHEN 325 MG TABLET PO STA (11:29)
[2021-10-14] MEDS ORDERED: DEXAMETHASONE 10 MG/ML VIAL PO STA (11:29)
== END 2021-10-14 12:06 | disposition home or self-care (01) ==
LOC: ED 10:57
DX: M54.50 Low back pain, unspecified (principal); G89.29 Other chronic pain; I10 Essential (primary) hypertension; E11.9 Type 2 diabetes mellitus without complications; Z79.4 Long term (current) use of insulin
CPT/HCPCS: 99283; 99284; A9270

== ENCOUNTER 2021-10-15 09:43 | Outpatient (CLI) | payer MEDICAID ==
--- NOTE | 2021-10-15 14:18 | XRAY Report ---
PROCEDURE: Thoracic Spine 2 View INDICATIONS: THORACIC BACK PX TECHNIQUE: 3 views of the thoracic spine were acquired. COMPARISON: None. FINDINGS: Bones: No fractures or dislocations. No suspicious bony lesions. 12 pairs of ribs are noted, and a ppear intact where visualized. Moderate degenerative changes noted throughout the thoracic spine. Mil d facet arthropathy noted throughout the thoracic spine. Soft tissues: No paravertebral stripe thickening. IMPRESSION: 1. Multilevel degenerative disc disease. 2. Multilevel facet arthropathy. 3. No fracture. No acute osseous lesion. If there is continued clinical concern for pathology, then M RI should be considered for further evaluation. Reviewed by: Debi Severino MD, PhD on 10/15/2021 2:16 PM PDT Approved by: Debi Severino MD, PhD on 10/15/2021 2:16 PM PDT Station ID: [id number]
--- NOTE | 2021-10-15 14:18 | XRAY Report ---
PROCEDURE: Lumbar Spine 2 View INDICATIONS: CHRONIC LOW BACK PX TECHNIQUE: 3 views of the lumbar spine were acquired. COMPARISON: None. FINDINGS: Bones: 5 mqa-bir-twuazlt vertebrae are present. There is approximate 5 degrees of L4-L5 anterolisth esis. There is mild convex right lumbar spine curvature. No vertebral body compression fractures. No suspicious bony lesions. Severe L2-L3 and L4-L5 degenerative disc disease. Moderate L1-L2, L3-L4 and L5-S1 degenerative disc disease. Moderate L3-L4, L4-L5 and L5-S1 facet arthropathy. Mild L1-L2 and L 2-L3 facet arthropathy. Soft tissues: Overlying bowel gas pattern is normal. No suspicious soft tissue calcifications. IMPRESSION: 1. Multilevel degenerative disc disease. 2. Multilevel facet arthropathy. 3. No fracture. No acute osseous lesion. If there is continued clinical concern for pathology, then M RI should be considered for further evaluation. Reviewed by: Debi Severino MD, PhD on 10/15/2021 2:17 PM PDT Approved by: Debi Severino MD, PhD on 10/15/2021 2:17 PM PDT Station ID: [id number]
== END 2021-10-15 09:44 | disposition home or self-care (01) ==
LOC: DI.N 09:43
PROVIDERS: ATTEND Physician Assistant Medical
DX: M51.34 Other intervertebral disc degeneration, thoracic region (principal); M47.814 Spondylosis without myelopathy or radiculopathy, thoracic region; M51.36 Other intervertebral disc degeneration, lumbar region; M51.37 Other intervertebral disc degeneration, lumbosacral region; M47.816 Spondylosis without myelopathy or radiculopathy, lumbar region; M47.817 Spondylosis without myelopathy or radiculopathy, lumbosacral region

== ENCOUNTER 2021-11-11 10:20 | Outpatient (CLI) | payer MEDICAID ==
--- NOTE | 2021-11-11 20:17 | XRAY Report ---
PROCEDURE: Hips 2V BILAT INDICATIONS: BILATERAL HIP PX TECHNIQUE: 2 views of the hip were acquired. COMPARISON: None FINDINGS: Bones: No fractures or dislocations. No suspicious bony lesions. The visualized pelvic ring appear s intact. Moderate to severe left and minimal right hip joint space narrowing. Minimal periarticular osteophytes are present. Soft tissues: No suspicious soft tissue calcifications or masses. IMPRESSION: Bilateral hip osteoarthritis, left greater than right. Reviewed by: Delmis Greenberg MD on 11/11/2021 8:16 PM PDT Approved by: Delmis Greenberg MD on 11/11/2021 8:16 PM PDT Station ID: [id number]
== END 2021-11-11 10:21 | disposition home or self-care (01) ==
LOC: DI.N 10:20
PROVIDERS: ATTEND Nurse Practitioner
DX: M16.0 Bilateral primary osteoarthritis of hip (principal)

== ENCOUNTER 2021-12-23 08:46 | Outpatient (CLI) | payer MEDICAID ==
[2021-12-23 09:04] LABS: BASOPHILS # (AUTO) 0.1 10^3/uL (0.0-0.1); BASOPHILS % (AUTO) 0.8 %; EOSINOPHILS # (AUTO) 0.2 10^3/uL (0.0-0.7); EOSINOPHILS % (AUTO) 2.3 %; HGB - HEMOGLOBIN 13.1 g/dL (12.0-16.0); LYMPHOCYTES # (AUTO) 2.5 10^3/uL (1.5-3.5); LYMPHOCYTES % (AUTO) 35.4 %; MEAN CORPUSCULAR HEMOGLOBIN 32.1 pg (27.0-31.0); MEAN CORPUSCULAR HGB CONC 33.6 g/dL (32.0-36.0); MEAN CORPUSCULAR VOLUME 95.6 fL (81.0-99.0); MONOCYTES # (AUTO) 0.6 10^3/uL (0.0-1.0); MONOCYTES % (AUTO) 8.6 %; NEUTROPHILS # (AUTO) 3.7 10^3/uL (1.5-6.6); NEUTROPHILS % (AUTO) 52.6 %; PLT - PLATELET COUNT 376 10^3/uL (130-450); RED BLOOD COUNT 4.08 10^6/uL (4.20-5.40); WHITE BLOOD COUNT 7.1 x10^3/uL (4.8-10.8)
[2021-12-23 09:21] LABS: ALBUMIN 4.3 g/dL (3.2-5.5); ALBUMIN/GLOBULIN RATIO 1.5 (1.0-2.2); ALKALINE PHOSPHATASE 38 IU/L (42-121); ALT ALANINE AMINOTRANSFERASE 22 IU/L (10-60); AST ASPARTATE AMINOTRANSFERASE 22 IU/L (10-42); BILIRUBIN,TOTAL 0.3 mg/dL (0.2-1.0); BUN - BLOOD UREA NITROGEN 20 mg/dL (6-20); CALCIUM 9.6 mg/dL (8.5-10.3); CARBON DIOXIDE - CO2 24 mmol/L (21-32); CHLORIDE 106 mmol/L (101-111); CHOLESTEROL 158 mg/dL; CREATININE 0.9 mg/dL (0.4-1.0); GFR - MDRD 63 (>89); GLUCOSE 174 mg/dL (70-100); HDL CHOLESTEROL 52 mg/dL; LDL CHOLESTEROL,CALCULATED 72 mg/dL; LDL/HDL RATIO 1.4 (<4.4); SODIUM 141 mmol/L (135-145); TOTAL PROTEIN 7.2 g/dL (6.7-8.2); TRIGLYCERIDES 169 mg/dL; VLDL CHOLESTEROL 34 mg/dL
[2021-12-23 09:33] LABS: THYROID STIMULATING HORMONE 2.72 uIU/mL (0.34-5.60)
[2021-12-23 09:37] LABS: CREATININE,URINE 251.7 mg/dL; MICROALBUM/CREATININE RATIO,UR 24.2 ug/mg (<30.0); MICROALBUMIN,URINE 6.1 mg/dL (0-300.0)
[2021-12-23 11:51] LABS: ESTIMATED AVERAGE GLUCOSE 151 mg/dL (70-100); HEMOGLOBIN A1c% 6.9 % (4.27-6.07)
== END 2021-12-23 08:47 | disposition home or self-care (01) ==
LOC: LAB 08:46
PROVIDERS: ATTEND Nurse Practitioner
DX: E11.9 Type 2 diabetes mellitus without complications (principal); E78.5 Hyperlipidemia, unspecified
CPT/HCPCS: 36415; 80050; 80061; 82043; 82570; 83036; 83721

== ENCOUNTER 2022-04-02 13:54 | Outpatient (CLI) | payer MEDICAID ==
[2022-04-02 20:07] LABS: ESTIMATED AVERAGE GLUCOSE 146 mg/dL (70-100); HEMOGLOBIN A1c% 6.7 % (4.27-6.07)
== END 2022-04-02 13:55 | disposition home or self-care (01) ==
LOC: LAB 13:54
PROVIDERS: ATTEND Nurse Practitioner
DX: E11.9 Type 2 diabetes mellitus without complications (principal)
CPT/HCPCS: 36415; 83036

== ENCOUNTER 2022-06-09 12:25 | Outpatient (CLI) | payer MEDICAID ==
[2022-06-09 13:26] LABS: ALBUMIN 4.2 g/dL (3.2-5.5); ALBUMIN/GLOBULIN RATIO 1.4 (1.0-2.2); BILIRUBIN,TOTAL 0.4 mg/dL (0.2-1.0); CALCIUM 9.9 mg/dL (8.5-10.3); CREATININE 0.7 mg/dL (0.4-1.0); POTASSIUM 3.8 mmol/L (3.5-5.0); TOTAL PROTEIN 7.3 g/dL (6.7-8.2)
== END 2022-06-09 12:26 | disposition home or self-care (01) ==
LOC: LAB 12:25
PROVIDERS: ATTEND Nurse Practitioner
DX: I10 Essential (primary) hypertension (principal); Z51.81 Encounter for therapeutic drug level monitoring
CPT/HCPCS: 36415; 80053

== ENCOUNTER 2022-10-30 10:44 | Emergency (ER) | payer MEDICAID ==
--- NOTE | 2022-10-30 11:19 | XRAY Report ---
PROCEDURE: Wrist 4 View RT INDICATIONS: Trauma TECHNIQUE: 4 views of the wrist were acquired. COMPARISON: None. FINDINGS: Bones: No fractures or dislocations. No suspicious bony lesions. Moderate osteoarthritic changes in volving first CMC joint and scaphotrapezial joint is seen. Scaphoid Soft tissues: No suspicious soft tissue calcifications or masses. Vascular calcifications are note d along dorsal and ulnar aspect of distal forearm. IMPRESSION: No acute right wrist fracture or dislocation. Right wrist joint osteoarthritis as above. Reviewed by: Mayank Griffith MD on 10/30/2022 11:17 AM PDT Approved by: Mayank Griffith MD on 10/30/2022 11:17 AM PDT Station ID: [id number]
--- NOTE | 2022-10-30 11:41 | ED Physician Documentation ---
PD HPI UPPER EXT INJURY - Stated complaint Stated Complaint: RT HAND INJ - Chief complaint Chief Complaint: Trauma Ext - History obtained from History obtained from: Patient - Additonal information Additional information: Patient is a 62-year-old female presenting for evaluation of right wrist pain that has been present for 4 to 5 days. Patient states that she was getting herself up and formed a fist and pushed off of it and bent her wrist in a funny way. She has been having pain at the site since then. She has tried an old brace and Tylenol without any improvement. She states having difficulty sleeping at night due to the pain.Pain at times does radiate up her arm. She does not take a blood thinner. She denies numbness or weakness. Review of Systems Constitutional: denies: Fever Cardiac: denies: Chest pain / pressure Respiratory: denies: Dyspnea GI: denies: Abdominal Pain Musculoskeletal: reports: Joint pain PD PAST MEDICAL HISTORY - Past Medical History Cardiovascular: Hypertension, High cholesterol Respiratory: None Endocrine/Autoimmune: Type 2 diabetes GI: GERD HEENT: None Musculoskeletal: Chronic back pain Derm: None - Past Surgical History Past Surgical History: Yes Ortho: Knee replacement, Carpal Tunnel surgery - Present Medications Home Medications: Ambulatory Orders Medication Instructions Recorded Confirmed Amlodipine Besylate 10 mg PO QDAC 12/01/12 10/30/22 Insulin Aspart (Vial) [NovoLOG] 10 unit SUBQ BID 12/01/12 10/30/22 Metformin HCl 1,000 mg PO BID 12/01/12 10/30/22 hydroCHLOROthiazide [Hydrodiuril] 25 mg PO DAILY 12/01/12 10/30/22 Cyclobenzaprine [Flexeril] 10 mg PO TID PRN #20 tablet 01/30/18 10/30/22 raNITIdine [Zantac] 150 mg ORAL BID 01/30/18 10/30/22 Acetaminophen [Acetaminophen Extra 500 mg PO QID PRN #50 tablet 10/14/21 10/30/22 Strength] Insulin Glargine [Lantus Solostar] 30 - 35 units SQ HS 10/30/22 10/30/22 Oxycodone HCl/Acetaminophen 1 each PO Q6H PRN #10 tablet 10/30/22 [Percocet 5-325 mg Tablet] tiZANidine [Zanaflex] 4 mg ORAL DAILY 10/30/22 10/30/22 - Allergies Allergies/Adverse Reactions: Allergies Allergy/AdvReac Type Severity Reaction Status Date / Time fenoprofen calcium * Allergy Unknown unknown Verified 10/30/22 10:48 [From Nalfon] hydrocodone bitartrate * Allergy unknown Verified 10/30/22 10:48 [From Vicodin] NSAIDS (Non-Steroidal Allergy Unknown Verified 10/30/22 10:48 Anti-Inflamma - Social History Does the pt smoke?: No Smoking Status: Never smoker Does the pt drink ETOH?: No Does the pt have substance abuse?: No - Immunizations Immunizations are current?: Yes - POLST Patient has POLST: No PD ED PE NORMAL - General General: Alert and oriented X 3, No acute distress, Well developed/nourished - HEENT HEENT: Atraumatic - Neck Neck: Supple, no meningeal sign - Cardiac Cardiac: RRR, Strong equal pulses - Respiratory Respiratory: No respiratory distress - Derm Derm: No rash - Extremities Extremities: Other (Tenderness to dorsum of Right wrist, Full range of motion, no snuffbox tenderness, radial pulse intact, no overlying erythema or swelling) Results - Vitals Vitals: Vital Signs - 24 hr 10/30/22 10/30/22 10:49 11:54 Temperature 36.7 C Heart Rate 110 H 97 Respiratory 20 18 Rate Blood Pressure 161/87 H 158/97 H O2 Saturation 95 97 Oxygen O2 Source Room air PD Medical Decision Making - ED course Complexity details: reviewed results, re-evaluated patient ED course: Patient presenting for evaluation of right wrist pain and there is been present since Wednesday. Neurovascular intact with no signs of a septic joint. An x-ray was obtained which I reviewed and see no signs for fracture or dislocation. She does have osteoarthritis which I reviewed with the patient. Discussed continued supportive care with Velcro wrist splint, ice, anti-inflammatories and elevation. Patient states she has had some trouble sleeping at night so prescribed a small amount of narcotic pain medication to use sparingly as needed. She is aware of need for follow-up with PCP as well as concerning symptoms to return for. Departure - Departure Disposition: 01 Home, Self Care Clinical Impression: Right wrist sprain Condition: Stable Instructions: ED Sprain Wrist Prescriptions: Oxycodone HCl/Acetaminophen [Percocet 5-325 mg Tablet] 1 each PO Q6H PRN #10 tablet PRN Reason: pain Comments: Your x-ray does not show any broken or out of place bones. You do have arthritis in the wrist. Your symptoms could be related to a sprain. Please continue wearing the brace.I sent a small amount of narcotic pain medication to the [facility] pharmacy. I would recommend close follow-up with your primary care provider.Return to the ER if you have worsening symptoms such as r edness, swelling, fevers or any new concerns. I am prescribing a short course of narcotic pain medication for you. These are potentially dangerous and addictive medications that should be used carefully. These medications may constipate you. Take an pkqg-xcp-nmfseov stool softener (docusate) twice daily with plenty of water while taking these medications. If you go 24 hours without a bowel movement, take kuop-njk-szwfcyq miralax, per package instructions. Do not drink or drive while taking these medications. If you received narcotic or sedating medications while in the emergency department, do not drive for 24 hours. Store this medication in a safe, secure place and out of reach of children. It is a violation of federal law to give or sell this medication to another person or to use in a manner other than prescribed. The ED will not refill narcotic prescriptions, including prescriptions lost or stolen. To dispose of unwanted medications: 1. [facility] [address] [facility] in [place] has a medication drop box. They accept prescription medications (in pill form) Wednesday through Wednesday 9:00 a.m. to 5:00 p.m. 2. The [facility] [employer] accepts prescription medications (in pill form only) for disposal year round. Call for more information. 3. Contact the [facility] for the next [facility] sponsored prescription drug collection event. , [phone], or [phone]; Note that many narcotic pain relievers also contain Tylenol/acetaminophen. Please ensure that your total dose of acetaminophen from all sources does not exceed 3 g (3000 mg) per day. Discharge Date/Time: 10/30/22 11:55
[2022-10-30 11:55] VITALS: BP 158/97
== END 2022-10-30 11:55 | disposition home or self-care (01) ==
LOC: ED 10:44
DX: S63.501A Unspecified sprain of right wrist, initial encounter (principal); X58.XXXA Exposure to other specified factors, initial encounter; I10 Essential (primary) hypertension; E11.9 Type 2 diabetes mellitus without complications; Z79.4 Long term (current) use of insulin
CPT/HCPCS: 99283

== ENCOUNTER 2023-02-01 08:05 | Outpatient (CLI) | payer MEDICAID ==
[2023-02-01 08:24] LABS: BASOPHILS # (AUTO) 0.1 10^3/uL (0.0-0.1); BASOPHILS % (AUTO) 0.7 %; EOSINOPHILS # (AUTO) 0.3 10^3/uL (0.0-0.7); EOSINOPHILS % (AUTO) 3.5 %; HCT - HEMATOCRIT 39.9 % (37.0-47.0); HGB - HEMOGLOBIN 13.2 g/dL (12.0-16.0); LYMPHOCYTES # (AUTO) 3.7 10^3/uL (1.5-3.5); MEAN CORPUSCULAR HEMOGLOBIN 32.6 pg (27.0-31.0); MEAN CORPUSCULAR HGB CONC 33.1 g/dL (32.0-36.0); MEAN CORPUSCULAR VOLUME 98.5 fL (81.0-99.0); MEAN PLATELET VOLUME 8.9 fL (7.9-10.8); MONOCYTES # (AUTO) 0.8 10^3/uL (0.0-1.0); MONOCYTES % (AUTO) 9.3 %; NEUTROPHILS # (AUTO) 3.6 10^3/uL (1.5-6.6); NEUTROPHILS % (AUTO) 42.1 %; PLT - PLATELET COUNT 335 10^3/uL (130-450); RED BLOOD COUNT 4.05 10^6/uL (4.20-5.40); WHITE BLOOD COUNT 8.5 x10^3/uL (4.8-10.8)
[2023-02-01 08:37] LABS: ALBUMIN 4.2 g/dL (3.2-5.5); ALBUMIN/GLOBULIN RATIO 1.4 (1.0-2.2); BILIRUBIN,TOTAL 0.4 mg/dL (0.2-1.0); CALCIUM 9.5 mg/dL (8.5-10.3); CREATININE 0.8 mg/dL (0.6-1.3); TOTAL PROTEIN 7.2 g/dL (6.4-8.9)
[2023-02-01 11:51] LABS: ESTIMATED AVERAGE GLUCOSE 157 mg/dL (70-100); HEMOGLOBIN A1c% 7.1 % (4.27-6.07)
== END 2023-02-01 08:06 | disposition home or self-care (01) ==
LOC: LAB 08:05
PROVIDERS: ATTEND Nurse Practitioner
DX: E11.9 Type 2 diabetes mellitus without complications (principal); R19.7 Diarrhea, unspecified
CPT/HCPCS: 36415; 80053; 83036; 85025

== ENCOUNTER 2023-09-09 09:13 | Outpatient (CLI) | payer MEDICAID ==
[2023-09-09 09:32] LABS: BASOPHILS # (AUTO) 0.1 10^3/uL (0.0-0.1); BASOPHILS % (AUTO) 0.7 %; EOSINOPHILS # (AUTO) 0.3 10^3/uL (0.0-0.7); EOSINOPHILS % (AUTO) 3.7 %; HCT - HEMATOCRIT 37.7 % (37.0-47.0); HGB - HEMOGLOBIN 12.6 g/dL (12.0-16.0); LYMPHOCYTES % (AUTO) 46.7 %; MEAN CORPUSCULAR HEMOGLOBIN 32.8 pg (27.0-31.0); MEAN CORPUSCULAR HGB CONC 33.4 g/dL (32.0-36.0); MEAN CORPUSCULAR VOLUME 98.2 fL (81.0-99.0); MEAN PLATELET VOLUME 8.7 fL (7.9-10.8); MONOCYTES # (AUTO) 0.8 10^3/uL (0.0-1.0); MONOCYTES % (AUTO) 9.7 %; NEUTROPHILS # (AUTO) 3.3 10^3/uL (1.5-6.6); PLT - PLATELET COUNT 338 10^3/uL (130-450); RED BLOOD COUNT 3.84 10^6/uL (4.20-5.40); RED CELL DISTRIBUTION WIDTH 12.3 % (12.0-15.0); WHITE BLOOD COUNT 8.5 x10^3/uL (4.8-10.8)
[2023-09-09 10:33] LABS: ALBUMIN 4.4 g/dL (3.2-5.5); ALBUMIN/GLOBULIN RATIO 1.8 (1.0-2.2); ALKALINE PHOSPHATASE 46 IU/L (42-121); ALT ALANINE AMINOTRANSFERASE 13 IU/L (10-60); AST ASPARTATE AMINOTRANSFERASE 13 IU/L (10-42); BILIRUBIN,TOTAL 0.3 mg/dL (0.2-1.0); BUN - BLOOD UREA NITROGEN 20 mg/dL (6-20); CALCIUM 10.1 mg/dL (8.5-10.3); CARBON DIOXIDE - CO2 28 mmol/L (21-32); CHLORIDE 105 mmol/L (101-111); CHOLESTEROL 133 mg/dL; CREATININE 0.8 mg/dL (0.6-1.3); GFR - MDRD 72 (>89); GLUCOSE 162 mg/dL (74-104); HDL CHOLESTEROL 44 mg/dL; LDL CHOLESTEROL,CALCULATED 49 mg/dL; LDL/HDL RATIO 1.1 (<4.4); POTASSIUM 4.4 mmol/L (3.5-4.5); SODIUM 139 mmol/L (135-145); TOTAL PROTEIN 6.8 g/dL (6.4-8.9); TRIGLYCERIDES 202 mg/dL (48-352); VLDL CHOLESTEROL 40 mg/dL
[2023-09-09 10:37] LABS: CREATININE,URINE 134.7 mg/dL; MICROALBUM/CREATININE RATIO,UR 12.6 ug/mg (<30.0); MICROALBUMIN,URINE 1.7 mg/dL
[2023-09-09 10:49] LABS: THYROID STIMULATING HORMONE 4.53 uIU/mL (0.34-5.60)
[2023-09-09 11:10] LABS: ESTIMATED AVERAGE GLUCOSE 157 mg/dL (70-100); HEMOGLOBIN A1c% 7.1 % (4.27-6.07)
== END 2023-09-09 09:14 | disposition home or self-care (01) ==
LOC: LAB 09:13
PROVIDERS: ATTEND Nurse Practitioner
DX: E11.8 Type 2 diabetes mellitus with unspecified complications (principal); E78.5 Hyperlipidemia, unspecified; Z79.4 Long term (current) use of insulin; G62.9 Polyneuropathy, unspecified
CPT/HCPCS: 36415; 80050; 80061; 82043; 82570; 82607; 83036; 83721

== ENCOUNTER 2024-03-14 09:28 | Outpatient (CLI) | payer MEDICAID ==
[2024-03-14 10:29] LABS: ESTIMATED AVERAGE GLUCOSE 206 mg/dL (70-100); HEMOGLOBIN A1c% 8.8 % (4.27-6.07)
== END 2024-03-14 09:29 | disposition home or self-care (01) ==
LOC: LAB 09:28
PROVIDERS: ATTEND Nurse Practitioner
DX: E11.9 Type 2 diabetes mellitus without complications (principal)
CPT/HCPCS: 36415; 83036